=== PATIENT | female | born 1960 | race American Indian/Alaskan Native ===

== ENCOUNTER 2019-11-24 23:21 | Emergency (ER) | payer MEDICARE ==
[2019-11-24] MEDS ORDERED: ASPIRIN 325 MG TAB PO ONE (23:35)
[2019-11-24 23:51] LABS: Basophils # (Auto) 0.1 K/mm3 (0.0-0.1); Eosinophils # (Auto) 0.2 K/mm3 (0.0-0.4); Eosinophils % (Auto) 2.6 % (0.0-4.3); Hematocrit 37.5 % (30.3-42.9); Hemoglobin 12.1 gm/dl (10.1-14.3); Lymphocytes # (Auto) 2.6 K/mm3 (1.2-5.4); Lymphocytes % (Auto) 38.1 % (13.4-35.0); Mean Corpuscular HGB Conc 32 % (30-34); Mean Corpuscular Volume 87 fl (79-97); Monocytes # (Auto) 0.3 K/mm3 (0.0-0.8); Monocytes % (Auto) 4.6 % (0.0-7.3); Platelet Count 292 K/mm3 (140-440); Red Blood Count 4.29 M/mm3 (3.65-5.03)
--- NOTE | 2019-11-25 00:13 | XRay Report ---
CHEST 1 VIEW INDICATION: Chest Pain. COMPARISON: None. FINDINGS: Support devices: None. Heart: Within normal limits. Lungs/Pleura: No acute air space or interstitial disease. Additional findings: None. IMPRESSION: No acute abnormality. Signer Name: Sam Lobo MD Signed: 11/25/2019 12:09 AM Workstation Name: [id number]
--- NOTE | 2019-11-25 00:46 | Emergency Department Report ---
ED Chest Pain HPI - General Chief Complaint: Chest Pain Stated Complaint: CHEST PAIN PUI?: No Time Seen by Provider: 11/25/19 00:30 Source: patient Mode of arrival: Ambulatory Limitations: Physical Limitation - History of Present Illness Initial Comments: Patient is a 59-year-old female that presents emergency room with complaints of epigastric pain radiating to the chest and nausea and vomiting. Patient states her symptoms been going on for 2 days. Patient states it is worsening. Patient dates she has a history of GERD. Patient is not taking GERD medication. Patient states she has an acid taste in her mouth. Patient states that her pain is worse with eating and palpation. Patient states that the pain is better with rest.. Patient states that her pain is a 10 out of 10. Patient denies shortness of breath. Patient denies diaphoresis. Patient denies fever and chills. Patient denies cough. Patient denies recent travel. Patient denies recent international travel. Patient denies exposure to the novel coronavirus. Patient denies sick contacts. Patient denies fever and chills. Patient denies cough. Patient denies diarrhea. Patient denies coming in contact with anybody with symptoms of the novel coronavirus. MD Complaint: chest pain -: Sudden Onset: during rest Pain Location: substernal, epigastric Pain Radiation: other (Epigastric pain radiating to the chest) Severity: severe Severity scale (0 -10): 10 Quality: other (Burning) Consistency: constant Improves With: antacids, rest Worsens With: eating, movement re: nausea, vomting. denies: diaphoresis, dyspnea, sense of impending doom Other Symptoms: acid taste in mouth, burping. denies: cough, fever, syncope, r castro, leg swelling, palpitations Treatments Prior to Arrival: none Aspirin use within the Past 7 Days: (0) No - Related Data On Oral Contraceptives: No Previous Rx's Medication Instructions Recorded Last Taken Type Esomeprazole Magnesium [NexIUM] 40 mg PO QDAY 30 Days #30 11/25/19 Unknown Rx capsule. Allergies Allergy/AdvReac Type Severity Reaction Status Date / Time No Known Allergies Allergy Verified 11/25/19 00:31 Heart Score - HEART Score History: Slightly suspicious EKG: Normal Age: 45-65 Risk factors: No known risk factors Troponin: < normal limit HEART Score: 1 ED Review of Systems ROS: Stated complaint: CHEST PAIN Other details as noted in HPI Constitutional: denies: chills, fever Eyes: denies: eye pain, eye discharge, vision change ENT: denies: ear pain, throat pain Respiratory: denies: cough, shortness of breath, wheezing Cardiovascular: chest pain. denies: palpitations Endocrine: no symptoms reported Gastrointestinal: abdominal pain, nausea, vomiting. denies: diarrhea Genitourinary: denies: urgency, dysuria, discharge Musculoskeletal: denies: back pain, joint swelling, arthralgia Skin: denies: rash, lesions Neurological: denies: headache, weakness, paresthesias Psychiatric: denies: anxiety, depression Hematological/Lymphatic: denies: easy bleeding, easy bruising ED Past Medical Hx - Past Medical History Previous Medical History?: Yes Hx GERD: Yes - Surgical History Past Surgical History?: No - Family History Family history: no significant - Social History Smoking Status: Never Smoker Substance Use Type: None - Medications Home Medications: Home Medications Medication Instructions Recorded Confirmed Last Taken Type Esomeprazole Magnesium [NexIUM] 40 mg PO QDAY 30 Days #30 11/25/19 Unknown Rx capsule. ED Physical Exam - General General appearance: alert, in no apparent distress - Head Head exam: Present: atraumatic, normocephalic - Eye Eye exam: Present: normal appearance, PERRL Pupils: Present: normal accommodation - ENT ENT exam: Present: mucous membranes moist - Neck Neck exam: Present: normal inspection - Respiratory Respiratory exam: Present: normal lung sounds bilaterally, chest wall tenderness (Reproduces symptoms). Absent: respiratory distress - Cardiovascular Cardiovascular Exam: Present: regular rate, normal rhythm. Absent: systolic murmur, diastolic murmur, rubs, gallop - GI/Abdominal GI/Abdominal exam: Present: soft, tenderness (Reproduces symptoms. Epigastric tenderness), normal bowel sounds - Rectal Rectal exam: Present: deferred - Extremities Exam Extremities exam: Present: normal inspection - Back Exam Back exam: Present: normal inspection - Neurological Exam Neurological exam: Present: alert, oriented X3 - Psychiatric Psychiatric exam: Present: normal affect, normal mood - Skin Skin exam: Present: warm, dry, intact, normal color. Absent: rash ED Course Vital Signs 11/24/19 11/25/19 11/25/19 23:35 00:41 00:42 Temperature 98.3 F 98.1 F Pulse Rate 72 66 Respiratory 16 20 20 Rate Blood Pressure 106/54 Blood Pressure 126/72 [Left] O2 Sat by Pulse 96 99 99 Oximetry - Reevaluation(s) Reevaluation #1: Patient states her pain has resolved. Patient states he is feeling much better. I discussed all results and clinical findings with patient. I discussed plan of care with patient. Patient agrees with plan of care. Patient is stable for discharge. Patient will be discharged home. Patient given discharge instructions. Patient voiced understanding of discharge instructions. 11/25/19 02:47 ED Medical Decision Making - Lab Data Result diagrams: 11/24/19 23:37 11/24/19 23:37 - EKG Data -: EKG Interpreted by Me EKG shows normal: sinus rhythm, axis, intervals, QRS complexes, ST-T waves Rate: normal - Radiology Data Radiology results: report reviewed, image reviewed interpreted by me: Chest x-ray: No pneumonia, no pneumothorax, no foreign body, no osseous findings, no acute findings. CHEST 1 VIEW INDICATION: Chest Pain. COMPARISON: None. FINDINGS: Support devices: None. Heart: Within normal limits. Lungs/Pleura: No acute air space or interstitial disease. Additional findings: None. IMPRESSION: No acute abnormality. - Medical Decision Making Patient is a 59-year-old female that presents emergency room with complaints of chest pain. Patient states that her pain is actually epigastric rating to her substernal chest. Patient describes as a burning. Patient that she has history of acid reflux was not take any medications. Patient had labs done. Patient's labs were essentially unremarkable. Patient's cardiac enzymes negative. Patient's EKG negative. Patient chest x-ray negative. Patient given a GI cocktail responded well. Patient's pain resolved. Patient left the ER connie jeromy asymptomatic. Patient stable for discharge. Patient discharged home. - Differential Diagnosis Chest pain, GERD, gastritis, abdominal pain, gastroenteritis Critical care attestation.: If time is entered above; I have spent that time in minutes in the direct care of this critically ill patient, excluding procedure time. ED Disposition Clinical Impression: Epigastric abdominal pain, Costochondritis, acute Chest pain Qualifiers: Chest pain type: unspecified Qualified Code(s): R07.9 - Chest pain, unspecified Acute gastritis Qualifiers: Gastritis type: unspecified gastritis Gastritis bleeding: without bleeding Qualified Code(s): K29.00 - Acute gastritis without bleeding GERD (gastroesophageal reflux disease) Qualifiers: Esophagitis presence: with esophagitis Qualified Code(s): K21.0 - Gastro- esophageal reflux disease with esophagitis Disposition: TO HOME OR SELFCARE Is pt being admited?: No Does the pt Need Aspirin: No Condition: Stable Instructions: Chest Pain (ED), Costochondritis (ED), Gastroesophageal Reflux Disease (ED), Diet for Ulcers and Gastritis (ED) Additional Instructions: Patient to follow-up with primary care in 2 to 3 days. Patient to follow-up with damage inside adjuster in 2 to 3 days. Patient to follow-up with a predatory animal exterminator in 2 -3 days. Patient to rest. Patient to increase water. Patient to avoid strenuous exercise or heavy lifting until cleared by cardiology. Patient will be referred to a predatory animal exterminator because she complained of chest pain and for re-stratification. Patient to take Tylenol as needed for pain. Patient to take meds as directed. Patient to return to the ER if condition worsens, changes or new symptoms arise. Prescriptions: Esomeprazole Magnesium [NexIUM] 40 mg PO QDAY 30 Days #30 capsule. Referrals: PRIMARY CARE, [Primary Care Provider] - 2-3 Days HIRA LAMB MD [Staff Physician] - 2-3 Days CORTNEY HOLT MD [Staff Physician] - 2-3 Days Time of Disposition: 02:49
[2019-11-25 01:21] LABS: BUN/Creatinine Ratio 16; Blood Urea Nitrogen 16 mg/dL (7-17); Hemolysis Index 13
[2019-11-25] MEDS ORDERED: LIDOCAINE VISCOUS 2% 15 ML ORAL LIQD PO ONE (01:26)
[2019-11-25] MEDS ORDERED: ALUM-MAG HYDROXIDE-SIMETHICONE 200-200-20MG/5ML ORAL LIQD 30 ML PO ONE (01:26)
[2019-11-25 02:56] VITALS: BP 122/77
== END 2019-11-25 03:01 | disposition home or self-care (01) ==
LOC: ED 23:21
DX: K21.9 Gastro-esophageal reflux disease without esophagitis (principal); K29.00 Acute gastritis without bleeding; M94.0 Chondrocostal junction syndrome [Tietze]
CPT/HCPCS: 36415; 71045; 80048; 84484; 85025; 93005

== ENCOUNTER 2020-06-26 21:48 | Emergency (ER) | payer OTHER, MEDICARE ==
[2020-06-27] MEDS ORDERED: ONDANSETRON 4 MG/2 ML INJ IV ONE (03:20)
[2020-06-27] MEDS ORDERED: MORPHINE 4 MG/1 ML INJ IV ONE (03:20)
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
[2020-06-27 04:00] LABS: Basophils # (Auto) 0.1 K/mm3 (0.0-0.1); Basophils % (Auto) 0.9 % (0.0-1.8); Eosinophils # (Auto) 0.2 K/mm3 (0.0-0.4); Eosinophils % (Auto) 2.3 % (0.0-4.3); Hematocrit 37.9 % (30.3-42.9); Hemoglobin 12.6 gm/dl (10.1-14.3); Lymphocytes # (Auto) 2.3 K/mm3 (1.2-5.4); Lymphocytes % (Auto) 31.6 % (13.4-35.0); Mean Corpuscular HGB Conc 33 % (30-34); Mean Corpuscular Volume 86 fl (79-97); Monocytes # (Auto) 0.5 K/mm3 (0.0-0.8); Platelet Count 295 K/mm3 (140-440); Red Cell Distribution Width 14.4 % (13.2-15.2)
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
[2020-06-27 06:25] LABS: BUN/Creatinine Ratio 18; Blood Urea Nitrogen 14 mg/dL (7-17); Hemolysis Index 2
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
[2020-06-27 08:53] VITALS: BP 122/79
== END 2020-06-27 08:30 | disposition home or self-care (01) ==
LOC: ED 21:48
DX: S20.212A Contusion of left front wall of thorax, initial encounter (principal); S30.1XXA Contusion of abdominal wall, initial encounter; M25.561 Pain in right knee; K21.9 Gastro-esophageal reflux disease without esophagitis; Z79.899 Other long term (current) drug therapy; V49.59XA Passenger injured in collision with other motor vehicles in traffic accident, initial encounter; Y93.89 Activity, other specified; Y92.488 Other paved roadways as the place of occurrence of the external cause; Y99.8 Other external cause status
CPT/HCPCS: 36415; 70450; 71260; 72125; 73110; 73130; 73610; 74177; 80048; 85025; 85610; 85730; 86850; 86900; 86901; 96374; 96375; 99284; J2270; J2405; Q9967